=== PATIENT | male | born 1970 | race Asian ===

== ENCOUNTER 2021-03-27 19:46 | Emergency (ER) | payer OTHER ==
[~2021-03-27] VITALS: Ht 172.7 cm; Wt 90.0 kg
[2021-03-27] MEDS ORDERED: NA PHOS,M-B/NA PHOS,DI-BA ENEMA 118ML PR ONE (22:45)
[2021-03-27 23:28] VITALS: BP 160/99
== END 2021-03-27 23:29 | disposition home or self-care (01) ==
LOC: ER 19:46
DX: K59.00 Constipation, unspecified (principal); K58.9 Irritable bowel syndrome, unspecified; N40.0 Benign prostatic hyperplasia without lower urinary tract symptoms; I10 Essential (primary) hypertension; Z87.891 Personal history of nicotine dependence
CPT/HCPCS: 99281

== ENCOUNTER 2021-04-13 17:52 | Emergency (ER) | payer OTHER ==
[~2021-04-13] VITALS: Ht 172.7 cm; Wt 87.0 kg
[2021-04-13 18:10] VITALS: BP 156/94
== END 2021-04-13 21:15 | disposition left against medical advice (07) ==
LOC: ER 17:52
DX: R33.9 Retention of urine, unspecified (principal); Z53.21 Procedure and treatment not carried out due to patient leaving prior to being seen by health care provider

== ENCOUNTER 2021-04-22 17:06 | Emergency (ER) | payer OTHER ==
[~2021-04-22] VITALS: Ht 172.7 cm; Wt 90.0 kg
[2021-04-22 17:45] VITALS: BP_DIAS 93
[2021-04-22 18:00] VITALS: BP_SYST 147
[2021-04-22 19:33] LABS: BASOPHILS % 0.5 % (0.0-2.0); EOSINOPHILS % 1.5 % (0.0-5.0); HEMATOCRIT. 42.9 % (42.0-52.0); HEMOGLOBIN. 14.4 g/dL (14.0-18.0); LYMPHOCYTES % 30.3 % (20.0-50.0); MEAN CORPUSCULAR HEMOGLOBIN 29.1 pg (28.0-32.0); MEAN CORPUSCULAR VOLUME 86.4 fL (80.0-94.0); MEAN PLATELET VOLUME 8.2 fl (7.4-10.4); MONOCYTES % 6.8 % (2.0-8.0); NEUTROPHILS % 60.9 % (40.0-76.0); PLATELET 282 x1000/uL (130-400); RED BLOOD CELL COUNT 4.96 mill/uL (4.7-6.1); RED CELL DISTRIBUTION WIDTH 13.5 % (11.6-14.6)
[2021-04-22 19:39] LABS: CHLORIDE 106 mEq/L (98-107)
== END 2021-04-22 20:27 | disposition left against medical advice (07) ==
LOC: ER 17:06
DX: R33.9 Retention of urine, unspecified (principal)
CPT/HCPCS: 36415; 80053; 85025; 99283; Z7610; A4315

== ENCOUNTER 2021-09-16 22:30 | Emergency (ER) | payer MEDICAID, OTHER ==
[~2021-09-16] VITALS: Ht 172.7 cm; Wt 87.0 kg
[2021-09-16 22:42] VITALS: BP 174/98
[2021-09-17 00:49] LABS: CLARITY URINE CLEAR (CLEAR); COLOR URINE YELLOW (YELLOW); KETONES URINE TRACE (NEGATIVE); LEUKOCYTE ESTERASE URINE NEGATIVE (NEGATIVE); NITRITE URINE NEGATIVE (NEGATIVE); OCCULT BLOOD URINE TRACE (NEGATIVE); PROTEIN URINE NEGATIVE (NEGATIVE); SPECIFIC GRAVITY URINE 1.024 (1.005-1.030); UROBILINOGEN URINE 0.2 E.U./dL (0.2-1.0)
== END 2021-09-17 01:02 | disposition left against medical advice (07) ==
LOC: ER 22:30
DX: K59.00 Constipation, unspecified (principal); N40.0 Benign prostatic hyperplasia without lower urinary tract symptoms; K58.9 Irritable bowel syndrome, unspecified
CPT/HCPCS: 81003; 99283

== ENCOUNTER 2022-05-29 07:18 | Emergency (ER) | payer MEDICAID, OTHER ==
[~2022-05-29] VITALS: Ht 172.7 cm; Wt 80.0 kg
[2022-05-29 07:58] VITALS: BP 149/102
[2022-05-29] MEDS ORDERED: LACTULOSE 20G/30ML UDC PO ONE (08:15)
[2022-05-29] MEDS ORDERED: MINERAL OIL 30ML BOTTLE PO ONE (08:15)
[2022-05-29] MEDS ORDERED: MAGNESIUM HYDROXIDE 400MG/5ML 30ML UDC PO ONE (08:15)
== END 2022-05-29 08:41 | disposition left against medical advice (07) ==
LOC: ER 07:18
DX: R33.9 Retention of urine, unspecified (principal)
CPT/HCPCS: 99283; Z7610

== ENCOUNTER 2023-03-16 21:14 | Emergency (ER) | payer MEDICAID ==
[~2023-03-16] VITALS: Ht 172.7 cm; Wt 91.0 kg
[2023-03-16 21:27] VITALS: BP 135/95; RESP 20; TEMP 98.2; O2SAT 99
[2023-03-16 21:32] VITALS: PULSE 88
== END 2023-03-17 00:32 | disposition left against medical advice (07) ==
LOC: ER 21:23
DX: N40.1 Benign prostatic hyperplasia with lower urinary tract symptoms (principal); R33.8 Other retention of urine; K59.00 Constipation, unspecified
CPT/HCPCS: 51702; 99281; 99284

== ENCOUNTER 2025-04-29 13:47 | Emergency (ER) | payer MEDICAID, OTHER ==
[~2025-04-29] VITALS: Ht 172.7 cm; Wt 91.0 kg
[2025-04-29 13:52] VITALS: O2SAT 99
[2025-04-29 13:58] VITALS: BP 195/112; PULSE 73; RESP 16; TEMP 36.9; O2SAT 99
[2025-04-29] MEDS: SENNOSIDES/DOCUSATE SOD 8.6/50MG TABLET PO STA (16:08)
[2025-04-29] MEDS ORDERED: LACT10SO81 MT (16:37)
[2025-04-29] MEDS ORDERED: SENN-312 PO (16:37)
[2025-04-29] MEDS ORDERED: PSYL1PAC11 PO (16:37)
[2025-04-29] MEDS: POLYETHYLENE GLYCOL 3350 (17GM) 1 DOSE PACK PO ONE (17:10)
[2025-04-29] MEDS: NA PHOS,M-B/NA PHOS,DI-BA ENEMA 118ML PR ONE (17:11)
== END 2025-04-29 17:05 | disposition home or self-care (01) ==
LOC: ER 13:47
DX: R33.8 Other retention of urine (principal); N40.1 Benign prostatic hyperplasia with lower urinary tract symptoms; K58.9 Irritable bowel syndrome, unspecified; I10 Essential (primary) hypertension; K59.00 Constipation, unspecified
CPT/HCPCS: 51701; 99284; Z7610; 99283